=== PATIENT | female | born 1995 | race Caucasian/White ===

== ENCOUNTER 2019-05-19 16:21 | Emergency (ER) | payer MEDICAID, OTHER ==
[~2019-05-19] VITALS: Ht 162.6 cm; Wt 51.0 kg
[2019-05-19 16:39] VITALS: BP 139/83
[2019-05-19] MEDS ORDERED: naproxen 500mg tablet PO ONE (16:45)
[2019-05-19] MEDS ORDERED: NAPR-56 PO (17:33)
[2019-05-19] MEDS ORDERED: CYCL-1 PO (17:33)
[2019-05-19] MEDS ORDERED: cyclobenzaprine 10mg tablet PO ONE (17:35)
== END 2019-05-19 17:58 | disposition home or self-care (01) ==
LOC: ER 16:23
DX: M25.512 Pain in left shoulder (principal); R20.0 Anesthesia of skin; Z88.2 Allergy status to sulfonamides; Z79.899 Other long term (current) drug therapy
CPT/HCPCS: 72040; 73030; 93005; 99283

== ENCOUNTER 2019-06-18 08:59 | Emergency (ER) | payer MEDICAID, OTHER ==
[~2019-06-18] VITALS: Ht 162.6 cm; Wt 51.0 kg
[~2019-06-18 08:59] MED LIST: CYCL-1 PO; NAPR-56 PO
[2019-06-18 09:41] LABS: BASOPHILS % (AUTO) 0.4 % (0-1); EOSINOPHILS # (AUTO) 0.1 X10'3 (0-0.9); EOSINOPHILS % (AUTO) 2.2 % (0-6); HEMATOCRIT 41.9 % (35.0-45.0); HEMOGLOBIN 14.2 g/dl (12.0-16.0); LYMPHOCYTES # (AUTO) 0.7 X10'3 (1.1-4.8); LYMPHOCYTES % (AUTO) 10.9 % (21-51); MEAN CORPUSCULAR HEMOGLOBIN 29.8 PG (27.0-31.0); MEAN CORPUSCULAR VOLUME 87.7 FL (78-98); MEAN PLATELET VOLUME 9.4 FL (7.4-10.4); MONOCYTES # (AUTO) 0.3 X10'3 (0-0.9); MONOCYTES % (AUTO) 5.7 % (2-12); NEUTROPHILS # (AUTO) 4.9 X10'3 (1.8-7.7); NEUTROPHILS % (AUTO) 80.8 % (42-75); PLATELET COUNT 228 X10'3 (140-440); RED BLOOD COUNT 4.77 X10'6 (4.20-5.60); RED CELL DISTRIBUTION WIDTH 13.5 % (11.5-14.5)
[2019-06-18 09:42] LABS: URINE HCG NEGATIVE (NEG)
[2019-06-18 09:54] LABS: CLARITY,URINE SLIGHTLY CLOUDY (Clear); COLOR,URINE YELLOW (Yellow); GLUCOSE, URINE NEGATIVE (Neg); KETONES,URINE NEGATIVE (Neg); LEUKOCYTE ESTERASE ,URINE TRACE (Neg); NITRITES, URINE NEGATIVE (Neg); OCCULT BLOOD,URINE NEGATIVE (Neg); PROTEIN,URINE NEGATIVE (Neg); UROBILINOGEN,URINE 0.2 E.U/dL (0.2-1.0)
[2019-06-18 09:54] LABS: ALANINE AMINOTRANSFERASE 27 U/L (12-78); ALBUMIN 4.7 G/DL (3.4-5.0); ALBUMIN/GLOBULIN RATIO 1.8 (1.1-1.5); ALKALINE PHOSPHATASE 49 IU/L (46-116); ASPARTATE AMINO TRANSFERASE 17 U/L (10-37); BILIRUBIN,TOTAL 1.2 MG/DL (0.1-1.0); BLOOD UREA NITROGEN 8 MG/DL (7-18); BUN/CREATININE RATIO 10.7 (6.6-38.0); CALCIUM 8.9 MG/DL (8.5-10.1); CHLORIDE 104 MMOL/L (99-107); CREATININE 0.75 MG/DL (0.40-0.90); GLUCOSE 89 MG/DL (70-104); LIPASE 82 U/L (73-393); POTASSIUM 3.1 MMOL/L (3.5-5.1); TOTAL PROTEIN 7.3 G/DL (6.4-8.2); eGFR > 90 ML/MIN
[2019-06-18 09:55] LABS: ANION GAP 12 (8-16); SODIUM 140 MMOL/L (135-145)
[2019-06-18 10:11] LABS: UA COLLECTION TYPE CLN CATCH MIDSTREAM
[2019-06-18 10:13] LABS: RBC,URINE 0-2 /HPF (0-2); SQUAMOUS EPITHELIAL CELL,UR MANY /LPF (FEW)
[2019-06-18 10:14] LABS: BACTERIA,URINE 3+ /HPF (Neg)
[2019-06-18] MEDS ORDERED: potassium Cl 20 mEq SR tablet PO ONE (11:10)
[2019-06-18 11:59] VITALS: BP 120/71
[2019-06-18] MEDS ORDERED: CEPH250T PO (12:16)
== END 2019-06-18 12:41 | disposition home or self-care (01) ==
LOC: ER 08:59
DX: N39.0 Urinary tract infection, site not specified (principal); R07.89 Other chest pain; Z88.2 Allergy status to sulfonamides
CPT/HCPCS: 36415; 80053; 81001; 81025; 83690; 85025; 93005; 99284

== ENCOUNTER 2019-07-01 20:45 | Emergency (ER) | payer MEDICAID, OTHER ==
[~2019-07-01] VITALS: Ht 162.6 cm; Wt 51.3 kg
[~2019-07-01 20:45] MED LIST changes: -NAPR-56 PO
[2019-07-01 21:39] LABS: BASOPHILS % (AUTO) 0.3 % (0-1); EOSINOPHILS % (AUTO) 0.3 % (0-6); HEMATOCRIT 39.6 % (35.0-45.0); HEMOGLOBIN 13.8 g/dl (12.0-16.0); LYMPHOCYTES # (AUTO) 0.2 X10'3 (1.1-4.8); LYMPHOCYTES % (AUTO) 3.4 % (21-51); MEAN CORPUSCULAR HEMOGLOBIN 30.2 PG (27.0-31.0); MEAN CORPUSCULAR HGB CONC 34.9 g/dL (33.0-36.5); MEAN CORPUSCULAR VOLUME 86.5 FL (78-98); MEAN PLATELET VOLUME 9.5 FL (7.4-10.4); MONOCYTES # (AUTO) 0.5 X10'3 (0-0.9); MONOCYTES % (AUTO) 9.2 % (2-12); NEUTROPHILS # (AUTO) 4.6 X10'3 (1.8-7.7); NEUTROPHILS % (AUTO) 86.8 % (42-75); PLATELET COUNT 188 X10'3 (140-440); RED BLOOD COUNT 4.58 X10'6 (4.20-5.60); RED CELL DISTRIBUTION WIDTH 13.1 % (11.5-14.5); WHITE BLOOD COUNT 5.3 X10'3 (4.5-11.0)
[2019-07-01 21:51] LABS: ALANINE AMINOTRANSFERASE 17 U/L (12-78); ALBUMIN 4.6 G/DL (3.4-5.0); ALBUMIN/GLOBULIN RATIO 1.6 (1.1-1.5); ALKALINE PHOSPHATASE 45 IU/L (46-116); ANION GAP 10 (8-16); ASPARTATE AMINO TRANSFERASE 12 U/L (10-37); BILIRUBIN,TOTAL 0.6 MG/DL (0.1-1.0); BLOOD UREA NITROGEN 6 MG/DL (7-18); CALCIUM 9.4 MG/DL (8.5-10.1); CHLORIDE 107 MMOL/L (99-107); CREATININE 0.75 MG/DL (0.40-0.90); GLUCOSE 116 MG/DL (70-104); POTASSIUM 3.3 MMOL/L (3.5-5.1); SODIUM 141 MMOL/L (135-145); TOTAL CARBON DIOXIDE 23.7 MMOL/L (24-32); TOTAL PROTEIN 7.5 G/DL (6.4-8.2); eGFR > 90 ML/MIN
--- NOTE | 2019-07-01 23:06 | NUR ---
talk t patient about anxiety and hydration . pt very well aware that she has anxiety and is lookin g for measures to help her cope vs medicate
[2019-07-01] MEDS ORDERED: normal saline 1000ML IV soln IVB ONE (23:30)
--- NOTE | 2019-07-02 00:06 | NUR ---
RELIEVING RN FOR BREAK, PT IS RESTING QUIETLY ON BED, 1 LITER NS INFUSING W/O, GAVE PT WARM BLANKET, PT HAS RIDE HOME WITH FAMILY
--- NOTE | 2019-07-02 00:59 | NUR ---
dr boswell stated pt doesnt not need the repeat troponin
[2019-07-02 01:05] VITALS: BP 107/72
== END 2019-07-02 01:00 | disposition home or self-care (01) ==
LOC: ER 20:46
DX: R00.0 Tachycardia, unspecified (principal); F41.9 Anxiety disorder, unspecified; Z88.2 Allergy status to sulfonamides
CPT/HCPCS: 36415; 71045; 80053; 84484; 85025; 93005; 99285; J7030

== ENCOUNTER 2019-07-02 03:51 | Emergency (ER) | payer MEDICAID, OTHER ==
[~2019-07-02] VITALS: Ht 162.6 cm; Wt 51.6 kg
[2019-07-02 03:52] VITALS: BP 130/89
[2019-07-02] MEDS ORDERED: LORazepam 1 MG tablet PO ONE (03:55)
[2019-07-02] MEDS ORDERED: propranolol 10mg tablet PO ONE (04:00)
--- NOTE | 2019-07-02 04:38 | NUR ---
PT SEEN EARLIER THIS SHIFT FOR SAME COMPLAINT. PT EVALUATED BY MD AND GIVEN MEDICATIONS FOR ANXIETY. PT AMBULATED OUT OF ER TO WAIT FOR RIDE FROM .
== END 2019-07-02 04:41 | disposition home or self-care (01) ==
LOC: ER 03:51
DX: F41.9 Anxiety disorder, unspecified (principal); Z88.2 Allergy status to sulfonamides
CPT/HCPCS: 99283

== ENCOUNTER 2023-08-21 08:17 | Emergency (ER) | payer MEDICAID ==
[~2023-08-21] VITALS: Ht 165.1 cm; Wt 55.4 kg
[2023-08-21 08:25] VITALS: BP 155/97; PULSE 132; RESP 16; TEMP 98.6; O2SAT 100
[2023-08-21] MEDS: meclizine 12.5mg tablet PO ONE (09:29)
[2023-08-21 09:47] LABS: BASOPHILS % (AUTO) 0.5 % (0-1); EOSINOPHILS % (AUTO) 0.5 % (0-6); HEMATOCRIT 39.3 % (35.0-45.0); HEMOGLOBIN 13.5 g/dl (12.0-16.0); LYMPHOCYTES # (AUTO) 0.8 X10'3 (1.1-4.8); LYMPHOCYTES % (AUTO) 14.7 % (21-51); MEAN CORPUSCULAR HEMOGLOBIN 30.1 PG (27.0-31.0); MEAN CORPUSCULAR HGB CONC 34.4 g/dL (33.0-36.5); MEAN CORPUSCULAR VOLUME 87.4 FL (78-98); MONOCYTES # (AUTO) 0.3 X10'3 (0-0.9); MONOCYTES % (AUTO) 4.9 % (2-12); NEUTROPHILS # (AUTO) 4.2 X10'3 (1.8-7.7); NEUTROPHILS % (AUTO) 79.4 % (42-75); PLATELET COUNT 224 X10'3 (140-440); RED CELL DISTRIBUTION WIDTH 13.3 % (11.5-14.5); WHITE BLOOD COUNT 5.3 X10'3 (4.5-11.0)
[2023-08-21 10:01] LABS: APTT 28 SECONDS (22-32); PROTHROMBIN TIME 10.8 SECONDS (9.0-12.0)
[2023-08-21 11:17] LABS: ALANINE AMINOTRANSFERASE 20 U/L (12-78); ALBUMIN 4.1 G/DL (3.4-5.0); ALBUMIN/GLOBULIN RATIO 1.1 (1.1-1.5); ALKALINE PHOSPHATASE 36 IU/L (46-116); ANION GAP 10 (8-16); ASPARTATE AMINO TRANSFERASE 13 U/L (10-37); BILIRUBIN,TOTAL 0.7 MG/DL (0.1-1.0); BLOOD UREA NITROGEN 11 MG/DL (7-18); BUN/CREATININE RATIO 17.2 (10.0-20.0); CALCIUM 8.9 MG/DL (8.5-10.1); CHLORIDE 107 MMOL/L (99-107); CREATININE 0.64 MG/DL (0.40-0.90); GLUCOSE 95 MG/DL (70-104); POTASSIUM 3.7 MMOL/L (3.5-5.1); SODIUM 139 MMOL/L (135-145); TOTAL CARBON DIOXIDE 22.2 MMOL/L (24-32); TOTAL PROTEIN 7.7 G/DL (6.4-8.2); eCRCL 114 ML/MIN; eGFR > 90 ML/MIN
[2023-08-21 11:28] LABS: THYROID STIMULATING HORMONE 0.91 ulU/ml (0.34-4.50)
[2023-08-21] MEDS ORDERED: SCOP1PAT11 TOP (12:01)
== END 2023-08-21 12:47 | disposition home or self-care (01) ==
LOC: ER 08:18
DX: R42 Dizziness and giddiness (principal); R79.1 Abnormal coagulation profile; Z88.2 Allergy status to sulfonamides; Z79.899 Other long term (current) drug therapy
CPT/HCPCS: 36415; 80053; 84439; 84443; 84484; 85025; 85610; 85730; 93005; 99284; J8597

== ENCOUNTER 2024-04-19 19:32 | Emergency (ER) | payer MEDICAID ==
[~2024-04-19] VITALS: Ht 162.6 cm; Wt 57.7 kg
[~2024-04-19 19:32] MED LIST changes: +SCOP1PAT11 TOP
[2024-04-19 19:39] VITALS: TEMP 98.5
[2024-04-19 20:05] LABS: BILIRUBIN,URINE NEGATIVE (Neg); CLARITY,URINE SLIGHTLY CLOUDY (Clear); COLOR,URINE YELLOW (Yellow); GLUCOSE, URINE NEGATIVE (Neg); KETONES,URINE NEGATIVE (Neg); LEUKOCYTE ESTERASE ,URINE SMALL (Neg); NITRITES, URINE NEGATIVE (Neg); OCCULT BLOOD,URINE LARGE (Neg); PROTEIN,URINE TRACE mg/dl (Neg); URINE HCG NEGATIVE (NEG); UROBILINOGEN,URINE 0.2 E.U/dL (0.2-1.0)
[2024-04-19 20:16] LABS: UA COLLECTION TYPE CLN CATCH MIDSTREAM
[2024-04-19 20:17] LABS: SQUAMOUS EPITHELIAL CELL,UR FEW /LPF (FEW); TRANSITIONAL EPI CELLS,URINE FEW /HPF; WBC CLUMPS,URINE FEW /HPF (NEGATIVE); WBC,URINE 20-30 /HPF (0-4)
[2024-04-19 20:18] LABS: BACTERIA,URINE NONE SEEN /HPF (Neg); MUCUS STRANDS NONE SEEN /LPF (Neg)
[2024-04-19] MEDS ORDERED: CEPH-585 PO (20:21)
[2024-04-19] MEDS ORDERED: PHEN-716 PO (20:21)
[2024-04-19] MEDS: phenazopyridine 100mg tablet PO ONE (20:43)
[2024-04-19] MEDS: CefTRIAXone 1000mg IM Kit (w/lidocaine diluent) IM ONE (20:43)
[2024-04-19 20:52] VITALS: BP 141/94; PULSE 98; RESP 16; O2SAT 99
== END 2024-04-19 20:54 | disposition home or self-care (01) ==
LOC: ER 19:32
DX: N39.0 Urinary tract infection, site not specified (principal); R39.15 Urgency of urination; R31.9 Hematuria, unspecified; Z88.1 Allergy status to other antibiotic agents; Z88.2 Allergy status to sulfonamides
CPT/HCPCS: 81001; 81025; 87077; 87088; 87186; 96372; 99283; J0696